=== PATIENT | male | born 1990 | race Caucasian/White ===

== ENCOUNTER 2024-02-07 10:43 | Emergency (ER) | payer MEDICAID, OTHER ==
[~2024-02-07] VITALS: Ht 177.8 cm; Wt 90.0 kg
[2024-02-07 10:52] VITALS: BP 114/76; PULSE 73; RESP 20; TEMP 98.9; O2SAT 98
[2024-02-07] MEDS: ONDANSETRON HCL 4MG/2ML INJ IV ONE (11:15)
[2024-02-07] MEDS: KETOROLAC 30MG/ML VIAL IV ONE (11:15)
[2024-02-07 11:55] LABS: BASOPHILS % 0.1 % (0.0-2.0); EOSINOPHILS % 1.2 % (0.0-5.0); HEMATOCRIT. 47.1 % (42.0-52.0); HEMOGLOBIN. 16.4 g/dL (14.0-18.0); LYMPHOCYTES % 7.2 % (20.0-50.0); MEAN CORPUSCULAR HEMOGLOBIN 30.9 pg (28.0-32.0); MEAN CORPUSCULAR HGB CONC 34.9 g/dL (31.0-37.0); MEAN CORPUSCULAR VOLUME 88.5 fL (80.0-94.0); MEAN PLATELET VOLUME 8.8 fl (7.4-10.4); MONOCYTES % 4.4 % (2.0-8.0); NEUTROPHILS % 87.1 % (40.0-76.0); PLATELET 206 x1000/uL (130-400); RED BLOOD CELL COUNT 5.32 mill/uL (4.7-6.1); RED CELL DISTRIBUTION WIDTH 12.8 % (11.6-14.6); WHITE BLOOD COUNT 12.6 x1000/uL (4.5-11.0)
[2024-02-07 12:01] LABS: CHLORIDE 106 mEq/L (98-107); POTASSIUM 4.6 mEq/L (3.5-5.1); SODIUM 140 mEq/L (136-145)
[2024-02-07 12:02] LABS: CALCIUM 9.9 mg/dL (8.7-10.4); CARBON DIOXIDE 28 mEq/L (21-32)
[2024-02-07 12:05] LABS: PROTHROMBIN TIME 11.1 sec (9.6-11.0)
[2024-02-07 12:07] LABS: CREATININE 1.1 mg/dL (0.6-1.3); GLUCOSE 108 mg/dL (70-105); UREA NITROGEN BLOOD 10 mg/dL (9-23)
[2024-02-07 12:23] LABS: CLARITY URINE CLOUDY (CLEAR); COLOR URINE DARK YELLOW (YELLOW); GLUCOSE URINE NEGATIVE (NEGATIVE); KETONES URINE TRACE (NEGATIVE); LEUKOCYTE ESTERASE URINE 1+ (NEGATIVE); NITRITE URINE NEGATIVE (NEGATIVE); OCCULT BLOOD URINE 3+ (NEGATIVE); PH URINE 6.5 (4.5-8.0); PROTEIN URINE 1+ (NEGATIVE); SPECIFIC GRAVITY URINE 1.026 (1.005-1.030)
[2024-02-07] MEDS ORDERED: IBUP-2029 MT (12:32)
[2024-02-07] MEDS ORDERED: ONDA4TAB50 MT (12:32)
[2024-02-07] MEDS ORDERED: TAMS-11 MT (12:32)
[2024-02-07 12:43] LABS: BACTERIA URINE NONE SEEN; RBC URINE TNTC /hpf (0-2); SQUAMOUS EPITHELIAL CELL URINE RARE /lpf (RARE/1+); YEAST URINE NONE SEEN
[2024-02-07] MEDS ORDERED: CEPH500C2 MT (13:11)
[2024-02-07 13:15] LABS: ALANINE AMINOTRANSFERASE 53 IU/L (10-49); ASPARTATE AMINOTRANSFERASE 33 IU/L (<34)
== END 2024-02-07 16:20 | disposition home or self-care (01) ==
LOC: ER 10:43
DX: N20.0 Calculus of kidney (principal); N39.0 Urinary tract infection, site not specified
CPT/HCPCS: 80048; 81003; 83690; 84450; 84460; 85025; 85610; 87086; 36415; 74176; 99284; Z7610 ×2